=== PATIENT | male | born 1950 | race Caucasian/White ===

== ENCOUNTER 2017-04-25 05:53 | Day surgery (SDC) | payer MEDICARE ==
[~2017-04-25] VITALS: Ht 182.9 cm; Wt 85.1 kg
[~2017-04-25 05:53] MED LIST: ASPI81CH CHEW; CYCL1TAB29 PO; IBUP800T23 PO; LEVO.075 PO; TRAM50TA PO; suboxone
[2017-04-25] MEDS ORDERED: SODIUM CHLORID 0.9% 500 ML INJ 500 ML IV SCH (06:30)
[2017-04-25] MEDS ORDERED: LACTATED RINGER'S 1000 ML IV PRN (06:30)
[2017-04-25] MEDS ORDERED: NS 1000 ML IV SCH (06:30)
[2017-04-25] MEDS ORDERED: POVIDONE IODINE 5% (ANTISEPSIS KIT) 4 APPLICATIONS EACH NARE PRN (06:30)
[2017-04-25] MEDS ORDERED: SODIUM CHLORID 0.9% 500 ML IV PRN (06:30)
[2017-04-25] MEDS ORDERED: POVIDONE IODINE 5% (ANTISEPSIS KIT) 4 APPLICATIONS EACH NARE SCH (06:30)
[2017-04-25] MEDS ORDERED: CHLORHEXIDINE GLUCONATE 2 % 1 PACK (2 CLOTHS) TOPICAL PRN (06:30)
[2017-04-25] MEDS ORDERED: CHLORHEXIDINE GLUCONATE 2 % 1 PACK (2 CLOTHS) TOPICAL SCH (06:30)
[2017-04-25] MEDS ORDERED: MUPIROCIN 2% OINT 1 APPLIC/GM SYR NASAL SCH (06:30)
[2017-04-25] MEDS ORDERED: Hold AM Insulin & AM Hypoglycemic medications in diabetic patients PRN (06:30)
[2017-04-25] MEDS ORDERED: LORazepam 1 MG TAB SL SCH ×2 (06:30)
[2017-04-25] MEDS ORDERED: INSULIN HUMAN REGULAR 1,000 UNITS/10 ML VIAL SQ PRN (06:30)
[2017-04-25] MEDS ORDERED: ceFAZolin 2 GM PREMIX 50 ML IV SCH (06:30)
[2017-04-25] MEDS ORDERED: NO Heparin, Lovenox, Coumadin at least 12 hours prior to procedure. PRN (06:30)
[2017-04-25] MEDS ORDERED: VANCOMYCIN 1000 MG/NS 250 ML IV SCH ×2 (06:30)
[2017-04-25] MEDS ORDERED: METOPROLOL TARTRATE 25 MG TAB PO PRN (06:30)
[2017-04-25 06:41] VITALS: BP 159/90; PULSE 62; RESP 16; TEMP 98.4; O2SAT 95
[2017-04-25] MEDS ORDERED: CHOL100025 CHEW (06:42)
[2017-04-25] MEDS ORDERED: MAGN250T11 PO (06:42)
[2017-04-25] MEDS ORDERED: PROPOFOL 200 MG/20 ML AMP IV ONE (07:05)
[2017-04-25 07:08] LABS: APTT (PATIENT) 29.6 SEC (24.3-30.1); PROTHROMBIN TIME - PATIENT 11.4 SEC (9.8-11.6)
[2017-04-25] MEDS ORDERED: LIDOCAINE HCL 2% 50 ML VIAL ONE (07:10)
[2017-04-25] MEDS ORDERED: VANCOMYCIN HCL 1000 MG VIAL ONE (07:10)
[2017-04-25] MEDS ORDERED: ceFAZolin INJ 1,000 MG VIAL ONE (07:10)
[2017-04-25] MEDS ORDERED: VANCOMYCIN 500 MG VIAL ONE (07:10)
[2017-04-25 07:20] LABS: BICARBONATE 25.1 MEQ/L (21.0-32.0); POTASSIUM 3.8 MEQ/L (3.5-5.1)
[2017-04-25 07:21] LABS: AUTOMATED NEUTROPHIL # 2.7 TH/MM3 (1.8-7.7); BASOPHIL # 0.1 TH/MM3 (0-0.2); BASOPHIL % 1.1 % (0.0-2.0); EOSINOPHIL # 0.1 TH/MM3 (0-0.4); EOSINOPHIL % 2.5 % (0.0-4.0); HEMATOCRIT 43.7 % (39.0-51.0); HEMO FLAGS DIFF FINAL; LYMPH % 36.2 % (9.0-44.0); LYMPHOCYTE # 1.9 TH/MM3 (1.0-4.8); MEAN CELL VOLUME 87.5 FL (80.0-100.0); MEAN CORPUSCULAR HEMOGLOBIN 29.4 PG (27.0-34.0); MEAN CORPUSCULAR HGB CONC 33.6 % (32.0-36.0); MONO % 8.9 % (0.0-8.0); NEUT % 51.3 % (16.0-70.0); PLATELET COUNT 221 TH/MM3 (150-450); RED BLOOD COUNT 4.99 MIL/MM3 (4.50-5.90); RED CELL DISTRIBUTION WIDTH 15.2 % (11.6-17.2); WHITE BLOOD COUNT 5.2 TH/MM3 (4.0-11.0)
[2017-04-25] MEDS ORDERED: ISOPROTERENOL HCL 1 MG/5 ML AMP ONE (07:56)
[2017-04-25] MEDS ORDERED: SODIUM CHLOR 0.9% 250 ML INJ 250 ML ONE (07:56)
[2017-04-25] MEDS ORDERED: ATROPINE SULFATE 1 MG/ML VIAL IV PRN (08:30)
[2017-04-25] MEDS ORDERED: LORazepam 2 MG/ML VIAL IV PRN (08:30)
[2017-04-25] MEDS ORDERED: ONDANSETRON HCL 4 MG/2 ML VIAL IV PRN (08:30)
[2017-04-25] MEDS ORDERED: METOCLOPRAMIDE HCL 10 MG/2 ML VIAL IV PRN (08:30)
[2017-04-25] MEDS ORDERED: oxyCODONE/ACETAMINOPHEN 5 MG/325 MG TAB PO PRN ×2 (08:30)
[2017-04-25] MEDS ORDERED: BACITRACIN OINT 0.9 GM PKT TOP ONE (08:30)
[2017-04-25] MEDS ORDERED: LIDOCAINE HCL 1% 50 ML VIAL INFIL PRN (08:30)
[2017-04-25] MEDS ORDERED: SODIUM CHLOR 0.9% 250 ML INJ 250 ML IV PRN (08:30)
--- NOTE | 2017-04-25 08:34 | CATHPROC ---
[facility] HIS Report Study Information Study Number Admission Scheduled Start Study Start [id number] Apr 25 2017 5:53AM 04/25/2017 Apr 25 2017 6:44AM [place] Service Electrophysiology Study Admit Source Facility Department Other [facility] - Child And Adolescent Psychiatrist Physician and Clinical Staff Initial Efren Lopez Bodybuilder Sera Hercules,JOURNEYMAN PAINTER TECH2 Other Anesthesia, APPLIED MATHEMATICIAN Recorder Parris Wong,RN Recorder Monisha Gonzalez,BSRN Scrub Homar Razo,RT(R) Scrub Reji Corcoran,ADMINISTRATIVE JOB TITLES(BS) X-Ray Maria Elena Antonio,RT(R) TECH2 Equipment Time Night Worker Description Size Mfg Part Number Used/Scraped [id number] 06:46 [employer] INDUSTRIES PACK, CCL CUSTOM * Used *[id number] 06:46 [employer] PACER DUFF, LIMB * 2530 *[id number] Used [id number] 06:46 [employer] MEDICAL BLANKET,WARM AIR CCL * Used *[id number] 06:48 [employer] CATHE[employer], JSN, QUAD FR 5 Used *[id number] 06:48 [employer] CAT[employer], JSN, QUAD FR 5 Used *[id number] 06:48 [employer], JSN, QUAD FR 5 Used *[id number] 06:48 [employer] CAT[employer], JSN, QUAD FR 5 Used *[id number] 06:48 [employer] SHEATH, EPS, FR5 FAST CATH FR 5 Used *[id number] 06:48 [employer], EPS, FR5 FAST CATH FR 5 Used *[id number] 06:48 [employer], EPS, FR5 FAST CATH FR 5 Used *[id number] 06:49 [employer], EPS, FR6 FAST CATH FR 6 [id number] Used History: Current Medications Medication Dosage/Unit Route Frequency Last Date/Time Taken Synthroid History: Allergies Allergy Reaction NKDA History: Risk Factors Family History of Hypertension Dyslipidemia Previous NM Previous Heart Failure Premature CAD Yes Yes No Yes No Prior Valve Prior PCI Prior CABG Surgery No No No Cerebrovascular Peripheral Artery Chronic Lung On Dialysis Diabetes Disease Disease Disease No No No Yes No History: Symptoms/Diagnosis Selection Items Syncope History: CV Disease Selection Items Known CAD NM History: Other Disease Selection Items CAD Depression HTN Labs Hgb (g/dl) Hct (%) RBC (MIL/MM3) WBC (l/cumm) Platelets (thousands) 12.00-18.00 37.00-55.00 4.80-6.20 4.80-10.80 140.00-450.00 14.7 43.7 4.9 5.2 221 Glucose (mg/dl) BUN (mg/dl) Creatinine (mg/dl) BUN:Creatinine (1:x) 60.00-110.00 8.00-20.00 0.10-9.00 10.00-20.00 95 11 0.9 12.2 Na (meq/l) K (meq/l) Cl (meq/l) CO2 (mmol/L) Ca (mg/dl) 138.00-146.00 3.80-5.10 101.00-111.00 23.00-30.00 9.00-10.50 142 3.8 107 25.1 8.7 INR (PTT:PT) 0.50-2.00 1 Medication Medication Total Dose (Bolus/Oral) Medication Total Dosage/Unit 1% XYLOCAINE 20 mL Medications (Bolus/Oral) Medication Time Given Dosage/Unit Administered By Reason 1% XYLOCAINE 04/25/2017 7:51:33 AM 20 mL Efren Garza For pain 20 mL 1% XYLOCAINE given in lab by Efren Garza in Right Groin via Subcutaneous. Ordered by Avery Garza. Reason: For pain. Medication (Drip) Medication Time Given Dosage/Unit Concentration/Unit Diluent (ml) Solution ISUPREL 04/25/2017 8:15:00 AM 4 mcg/min 1 mg 250 NaCl .9 4 mcg/min ISUPREL given in lab by Efren Garza via Peripheral IV. Pump/Drip Flow = 60 ml/hr using Na Cl .9 with a concentration of 1 mg in 250 ml. Ordered by Efren Garza. IV Solutions 04/25/2017 7:08:02 AM 0 mL (IV) 500 NaCl .9 IV Solutions given in lab by Parris Wong RN in Left Antecubital via Peripheral IV. Pump/Drip Flow = 20 ml/hr using NaCl .9. Ordered by Efren Garza. IV Solutions 04/25/2017 7:08:15 AM 0 mL (IV) 500 NaCl .9 IV Solutions given in lab by Parris Wong RN in Right Antecubital via Peripheral IV. Pump/Drip Ameya w = 20 ml/hr using NaCl .9. Ordered by Efren Garza. Initial Case Assessment Cardiovascular HR Rhythm NIBP Chest Pain 64 SR 172/87 0 Edema Present Skin color Skin None Normal Warm Dry Circulatory - Right Pulses Dorsalis Pedis 1 Scale (0,1,2,3,4,d) Circulatory - Left Pulses Dorsalis Pedis 1 Scale (0,1,2,3,4,d) Final Case Assessment Cardiovascular HR NIBP Chest Pain 90 116/60 0 Edema Present Skin color Skin None Normal Warm Dry Chronological Log Time Study Chronological Log 7:05:33 Patient arrived via Bed. 7:07:42 Patient Name, D.O.B, / Armband Verified By R.N. 7:07:45 Consent signed by the physician and the patient and verified by the Child And Adolescent Psychiatrist staff. 7:07:48 Pre-op and post- op instructions given; patient acknowledges understanding of instructions. 7:07:51 Patient has been NPO for More than 6Hrs. 7:07:52 NO Skin Breakdown- 7:07:54 Patient Warmer Placed on the Table. 7:07:55 Disposable Defibrillator Pads Placed On Patient. 7:08:00 A # 20 IV was noted in the Antecubital (left). Grade = 0 IV Solutions given in lab by Parris Wong RN in Left Antecubital via Peripheral IV. Pump/Drip Flow = 20 ml/hr using 7:08:02 NaCl .9. Ordered by Efren Garza. 7:08:08 A # 20 IV was noted in the Antecubital (right). Grade = 0 IV Solutions given in lab by Parris Wong RN in Right Antecubital via Peripheral IV. Pump/Dri p Flow = 20 ml/hr using 7:08:15 NaCl .9. Ordered by Efren Garza. 7:08:16 History and physical on the chart or being dictated. 7:15:00 Anesthesia at bedside. Assumes care of patient. Olesya MAK Assessment: Initial Case, HR=64 BPM, Rhythm=SR, PTOM=683/87 mmhg, Chest Pain=0, Edema=None, [place] r=Normal, Skin = Warm, Dry 7:16:45 Right Pulses: Meño Ped=1 Left Pulses: Meño Ped=1 7:33:17 Table restraints applied according to hospital policy 7:33:35 Presedation re-assessment performed by Child And Adolescent Psychiatrist RN. 7:35:50 Dr Garza notified that case is ready. 7:41:25 Reference ECG taken 7:47:33 MD arrived. 7:51:00 Case Start Time Out. Correct patient, procedure, procedure equipment, site and side verified with physician present. Time 7:51:01 concurred by MD, individual staff and APPLIED MATHEMATICIAN. Time Out #2 - Consents verified, patient in correct position, all results are labled and display ed, safety precautions 7:51:02 taken, antibiotics administered. Time out concurred by MD, individual staff and APPLIED MATHEMATICIAN in procedur e 20 mL 1% XYLOCAINE given in lab by Efren Garza in Right Groin via Subcutaneous. Ordered by Efren Edwards. 7:51:33 Reason: For pain. 7:51:56 Vascular access was obtained in the Fem Vein (right). 7:52:19 Vascular access was obtained in the Fem Vein (right). 7:52:21 Vascular access was obtained in the Fem Vein (right). 7:52:22 Vascular access was obtained in the Fem Vein (right). 7:52:39 A SHEATH, EPS, FR5 FAST CATH FR 5 was advanced into the Fem Vein (right) using the Percutane ous technique. 7:52:52 A SHEATH, EPS, FR5 FAST CATH FR 5 was advanced into the Fem Vein (right) using the Percutane ous technique. 7:53:03 A SHEATH, EPS, FR5 FAST CATH FR 5 was advanced into the Fem Vein (right) using the Percutane ous technique. 7:53:13 A SHEATH, EPS, FR6 FAST CATH FR 6 was advanced into the Fem Vein (right) using the Percutane ous technique. A CATHETER, JSN, QUAD FR 5 was advanced vis Fem Vein (right) and placed in the HIS. Placement wa s visually 7:56:06 confirmed under fluoroscopy. A CATHETER, JSN, QUAD FR 5 was advanced vis Fem Vein (right) and placed in the RVA. Placement wa s visually 7:56:21 confirmed under fluoroscopy. A CATHETER, JSN, QUAD FR 5 was advanced vis Fem Vein (right) and placed in the HRA. Placement wa s visually 7:56:48 confirmed under fluoroscopy. A CATHETER, DESIREN, QUAD FR 5 was advanced vis Fem Vein (right) and placed in the CS. Placement was visually 7:57:03 confirmed under fluoroscopy. 8:03:15 EP study in progress 4 mcg/min ISUPREL given in lab by Efren Garza via Peripheral IV. Pump/Drip Flow = 60 ml/hr u sing NaCl .9 with a 8:15:00 concentration of 1 mg in 250 ml. Ordered by Efren Garza. 8:20:43 Isuprel gtt decreased to 2 mcgs/min 8:22:22 Isuprel gtt turned off 8:22:38 EP study completed. 8:23:10 All Quad catheters removed. 8:24:35 EP Procedure was performed. Assessment: Final Case, HR=90 BPM, NXER=386/60 mmhg, Chest Pain=0, Edema=None, Color=Normal, S kin = Warm, 8:25:14 Dry 8:25:40 Sheath removed; pressure applied to access site. 8:29:31 Case End 8:29:35 Sterile dressing applied to site 8:30:03 No case complications noted. 8:30:51 Cine recording checked. 8:30:57 Bedside Report will be given. 8:32:28 Patient moved to bed and transported to DOCU in stable condition. End Study - Contrast Media Used In Study Contrast Total Opened (mL) Total Used (mL) Total Wasted (mL) Unspecified 0 0 0 End Study - Maximum Contrast Load Max Contrast Load (mL) 472.7 End Study - Radiation Exposure Fluoro Time (minutes) 1.9 End Study - Sheaths Sheaths Pulled By Sheath Hold Time (min) Reji Corcoran End Study - Patient Disposition Complications Transferred To Interventional Outcome No Telemetry Bed successful
--- NOTE | 2017-04-25 08:42 | MA ---
cc: HOWARD LARSON M.D., HANSCY M.D. DATE: 04/25/2017 PROCEDURE Electrophysiology study, CS cannulation, repeat electrophysiology study on Isuprel infusion. INDICATION Mr. Moise is a 66-year-old gentleman with episode of bradycardia, some pause on Holter, episodes of second-degree AV block, referred for electrophysiology study and possible device insertion. The risks, the nature and the benefit of the procedure were clearly stated to him. The risks include pneumothorax, cardiac perforation, stroke, need for open heart surgery and even . The patient understood and agreed to proceed. DETAILS OF PROCEDURE After written informed consent was obtained, the patient was brought to the EP lab where he was prepped and draped in the usual sterile fashion. Conscious sedation was initiated and maintained throughout the procedure by the anesthesiologist. Once sedation verified, the right inguinal area was anesthetized with 2% Xylocaine. Using modified Seldinger technique, the right femoral vein was cannulated on four occasions and four guidewires were advanced. Over the wires three 5 and a 6 [place] Hemaquet were advanced. Then under fluoroscopic guidance through the 5 and 6 [place] Hemaquets, four 5 [place] Nitin curved quadripolar electrophysiology catheters were advanced and positioned on the His, upper right atrium and coronary sinus. Basic intervals were measured and all within normal limits. At this point atrial pacing protocol was performed. Wenckebach of the node was very high over 700 milliseconds. Atrial pacing protocol consisted of incremental atrial pacing as well as programmed stimulation with 110 cycle length and up to one extrastimuli delivered. No tachyarrhythmia was induced. Next, ventricular pacing protocol was performed. There was no VA conduction. No tachyarrhythmia was induced. Isuprel was then infused at 4 mcg. Atrial pacing protocol was repeated again and no tachyarrhythmia was induced. Ventricular pacing protocol was repeated again and there was no VA conduction, no tachyarrhythmia was induced. Post Isuprel no tachyarrhythmia was induced. At that point the procedure was complete. All catheters were removed. The patient is going to be transferred to the recovery room. There is no need for pacemaker insertion. The patient tolerated the procedure. Blood loss minimal. FINDINGS 1. Electrocardiogram: At baseline the patient was in sinus. Post-procedure electrocardiogram was unchanged. 2. Basic interval: Basic cycle length was around 30 milliseconds, AH at 140 and HV at 55 milliseconds. 3. Atrial pacing protocol: At baseline Wenckebach of the node was over 700 milliseconds. During Isuprel infusion it was around 400 milliseconds. No tachyarrhythmia was induced. 4. Ventricular pacing protocol: There was no VA at baseline on Isuprel. CONCLUSION Negative electrophysiology study for supraventricular tachyarrhythmia. COMMENT/RECOMMENDATION The patient is going to be transferred to the recovery room. No need for pacing support at this point. If in the future the patient develops a syncopal episode then I would consider loop recorder insertion. Efren Garza MD HS/BT /8:32 AM /8:37 AM
[2017-04-25] MEDS ORDERED: MIDAZOLAM HCL 2 MG/2 ML VIAL ONE ×2 (09:14→15:16)
--- NOTE | 2017-04-25 09:52 | EKG ---
Date Performed: 04/25/2017 Time Performed: 06:40:00 PTAGE: 66 years EKG: Sinus bradycardia with 1st degree A-V block Leftward axis Inferior T wave abnormality, cons ider ischemia Abnormal ECG PREVIOUS TRACING : 02/18/2012 12.12 No significant change from previous tracing noted. DOCTOR: Timothy Otero Interpretating Date/Time 04/25/2017 09:50:46
--- NOTE | 2017-04-25 18:30 | MA ---
cc: MERLY KING M.D. DATE: 04/25/2017 PROCEDURE Loop recorder insertion. INDICATION Mr. Moise is a 66-year-old gentleman with recurrent episode of dizziness and near syncope, negative electrophysiologic study to undergo loop recorder insertion. The risks, the nature and the benefit of the procedure are clearly stated to him. The risks include pneumothorax, infection and even . The patient understood and agreed to proceed. PROCEDURE After written informed consent was obtained, the patient was evaluated. Conscious sedation was initiated and maintained throughout the procedure using intravenous Versed and intravenous Fentanyl. Once sedation verified, the left parasternal area was anesthetized with 2% Xylocaine. Using a cutter, an 11-cm incision was made. Subsequently the loop was inserted under the skin. After adequate sensing observed, the border was approximated using Dermabond and Steri-Strips. No incident to report. The patient tolerated the procedure. IMPLANTED HARDWARE The implanted loop recorder is a [employer] Model A, serial number [id number]. SENSING Sensing was at 0.79 mV. SETTINGS The device setting was tachy over 167 and russell under 30. CONCLUSION Successful loop recorder insertion. RECOMMENDATIONS The patient going to be observed and discharged home later today. Merly King MD /ELDER /4:00 PM /6:14 PM
== END 2017-04-25 16:35 | disposition home or self-care (01) ==
LOC: HDIC 05:53 → HDOC 05:53
PROVIDERS: ATTEND Internal Medicine Interventional Cardiology
DX: I44.1 Atrioventricular block, second degree (principal); R00.1 Bradycardia, unspecified; I10 Essential (primary) hypertension; I25.10 Atherosclerotic heart disease of native coronary artery without angina pectoris; E78.5 Hyperlipidemia, unspecified
CPT/HCPCS: 00537; 80048; 85025; 85610; 85730; 86850; 86900; 86901; 93005; 93620; 93623; C1730; J0690; J2060; J2250; J3010; J7040; J3370; J7050

== ENCOUNTER → 2017-08-06 | Day surgery (SDC) | payer MEDICARE ==
[~2017-08-06] MED LIST changes: +ACETAMINOPHEN/HYDROcodone 325 MG/5 MG TAB PO PRN; -ASPI81CH CHEW; +BUPIVACAINE HCL PF 0.5% 30 ML VIAL ONE; +BUPIVACAINE/EPINEPHRINE 0.5% PF 10 ML VIAL ONE; +CHOL100025 CHEW; -CYCL1TAB29 PO; +EPINEPHrine HCL (1:1000) 30 MG/30 ML VIAL ONE; -IBUP800T23 PO; +KETOROLAC TROMETHAMINE 30 MG/ML (IVP) VIAL IV PUSH ONE; +LACTATED RINGER'S 1000 ML INJ 1,000 ML ONE; +MAGN250T11 PO; +MEPERIDINE HCL 50 MG/ML VIAL ONE; +MIDAZOLAM HCL 2 MG/2 ML VIAL ONE; +MORPHINE SULFATE 4 MG/ML INJ IV PUSH PRN; +ONDANSETRON HCL 4 MG/2 ML VIAL IV PUSH ONE; +ONDANSETRON HCL 4 MG/2 ML VIAL IV PUSH PRN; +PROPOFOL 200 MG/20 ML AMP IV ONE; +SODIUM CHLORIDE 0.9% FLUSH 10 ML FLUSH IV FLUSH PRN; +SODIUM CHLORIDE 0.9% FLUSH 10 ML FLUSH IV FLUSH SCH; -TRAM50TA PO; +ceFAZolin INJ 1,000 MG VIAL ONE; -suboxone
--- NOTE | 2017-08-06 09:42 | PD.OP ---
cc: Champ Hunt Jr., MD Operative Report Date of Surgery: Aug 06, 2017 Preoperative Diagnosis: right elbow DJD with loose body Postoperative Diagnosis: same Procedure: right elbow arthroscopy with removal of loose body Anesthesia: general Surgeon: Cahmp Hunt Flight Deck Officer(s): Staff Resident Surgeon: none Operation and Findings: INDICATION FOR PROCEDURE: The patient is a very pleasant 67-year-old male with a history of increasing RIGHT elbow pain from osteoarthritis with mechanical locking as result of loose bodies posteriorly. His symptoms are entirely posteriorly. The pain has become unresponsive to conservative care, including antianflammatory medications , injections and physical therapy, now presents for elbow arthroscopy and surgery as indicated. Risks of anesthesia, infection, bleeding, damage to neurovascular structures, stiffness, DVT, incomplete pain relief secondary to degenerative joint disease, possibly the need for future procedure were explained. Patient understands that risk and agrees with my recommendation and wishes to proceed with the planned procedure. PROCEDURE DETAILS: The patient was taken to the operating room. Monitored anesthesia care was induced. Patient was placed in lateral nephew's position. The extremity was sterilely prepped and draped. Examination under anesthesia revealed limited flexion to 120 and extension to 30. 60 of each supination and pronation. Arthroscope was introduced into the direct posterior working portal. There was significant synovitis, large osteophytes on the olecranon process and olecranon fossa, as well as small loose bodies and one large one. The medial and lateral gutters were within normal limits. Through a posterior lateral portal, using a shaver and a large bur, the osteophytes and loose bodies were removed. The olecranon fossa was debrided. I did an extensive synovectomy of the posterior capsule. All the portals sites were made with a knife at the skin only, the subcutaneous tissue was carefully bluntly dissected prior to insertion of a trocar, in order to avoid injury to the neurovascular bundles. Postoperative range of motion was flexion 120 and extension to 10, with 60 of each pronation and supination. The wounds were copiously irrigated and closed with nylon. A sterile dressing was applied. The patient tolerated procedure very well. There were no complications. Champ Hunt Jr., MD Aug 06, 2017 09:42
== END | disposition home or self-care (01) ==
LOC: ESDC 06:25
PROVIDERS: ATTEND Orthopaedic Surgery
DX: M24.021 Loose body in right elbow (principal)
CPT/HCPCS: 01740; 29834; J0171; J0690; J1885; J2175; J2250; J2405; J3010; J7120

== ENCOUNTER 2018-04-29 16:00 | Emergency (ER) | payer MEDICARE ==
[~2018-04-29] VITALS: Ht 182.9 cm; Wt 72.5 kg
[~2018-04-29 16:00] MED LIST changes: -ACETAMINOPHEN/HYDROcodone 325 MG/5 MG TAB PO PRN; -BUPIVACAINE HCL PF 0.5% 30 ML VIAL ONE; -BUPIVACAINE/EPINEPHRINE 0.5% PF 10 ML VIAL ONE; -EPINEPHrine HCL (1:1000) 30 MG/30 ML VIAL ONE; -KETOROLAC TROMETHAMINE 30 MG/ML (IVP) VIAL IV PUSH ONE; -LACTATED RINGER'S 1000 ML INJ 1,000 ML ONE; -MEPERIDINE HCL 50 MG/ML VIAL ONE; -MIDAZOLAM HCL 2 MG/2 ML VIAL ONE; -MORPHINE SULFATE 4 MG/ML INJ IV PUSH PRN; -ONDANSETRON HCL 4 MG/2 ML VIAL IV PUSH ONE; -ONDANSETRON HCL 4 MG/2 ML VIAL IV PUSH PRN; -PROPOFOL 200 MG/20 ML AMP IV ONE; -SODIUM CHLORIDE 0.9% FLUSH 10 ML FLUSH IV FLUSH PRN; -SODIUM CHLORIDE 0.9% FLUSH 10 ML FLUSH IV FLUSH SCH; -ceFAZolin INJ 1,000 MG VIAL ONE
[2018-04-29 16:06] VITALS: BP 123/78; PULSE 79; RESP 14; TEMP 97.8; O2SAT 97
[2018-04-29] MEDS ORDERED: KETOROLAC TROMETHAMINE 60 MG/2 ML (IM) VIAL IM ONE (18:30)
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
[2018-04-29 18:35] VITALS: BP 146/79; PULSE 53; RESP 21; O2SAT 97
[2018-04-29] MEDS ORDERED: SUBO8MIS SL (18:38)
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
[2018-04-29] MEDS ORDERED: IBUP-232 PO (19:41)
--- NOTE | 2018-04-29 21:35 | EKG ---
Date Performed: 04/29/2018 Time Performed: 18:29:53 PTAGE: 67 years EKG: SINUS BRADYCARDIA BORDERLINE LEFT AXIS DEVIATION VOLTAGE CRITERIA FOR LVH Nonspecific ST an d T wave abnormalities ABNORMAL ECG Compared to prior electrocardiogram, Nonspecific STT wave changes are slightly more marked. PREVIOUS TRACING : 04/25/2017 06.40 DOCTOR: Suraj Guerra Interpretating Date/Time 04/29/2018 21:34:29
== END 2018-04-29 20:00 | disposition home or self-care (01) ==
LOC: NEPC 16:00
DX: S80.01XA Contusion of right knee, initial encounter (principal); S80.11XA Contusion of right lower leg, initial encounter; S70.01XA Contusion of right hip, initial encounter; S70.11XA Contusion of right thigh, initial encounter; S50.01XA Contusion of right elbow, initial encounter; S00.03XA Contusion of scalp, initial encounter; R00.1 Bradycardia, unspecified; Y04.8XXA Assault by other bodily force, initial encounter
CPT/HCPCS: 71045; 73502; 73564; 93005; 96372; 99284; J1885